=== PATIENT | male | born 1995 | race Caucasian/White ===

== ENCOUNTER 2016-06-25 14:03 | Emergency (ER) | payer SELFPAY ==
[~2016-06-25] VITALS: Ht 180.3 cm; Wt 67.7 kg
[2016-06-25 15:29] LABS: BLOOD UREA NITROGEN 12 mg/dL (7-18)
[2016-06-25 15:30] LABS: ASPARTATE AMINO TRANSFERASE 22 U/L (15-37)
[2016-06-25 16:20] LABS: PATH.CAST-FLAG NOT PRESENT; SPERM-FLAG NOT PRESENT; SRC-FLAG NOT PRESENT; XTAL-FLAG NOT PRESENT; YLC-FLAG NOT PRESENT
[2016-06-25] MEDS ORDERED: KETOROLAC 30 MG/1 ML ONE (16:49)
[2016-06-25] MEDS ORDERED: KETOROLAC 30 MG/1 ML IM ONE (17:00)
[2016-06-25] MEDS ORDERED: HYDROcodone/APAP 5/325 TABLET ONE (19:21)
[2016-06-25 19:28] VITALS: BP 123/74
[2016-06-25] MEDS ORDERED: HYDROcodone/APAP 5/325 TABLET PO ONE (19:30)
[2016-06-25] MEDS ORDERED: SODIUM CHLORIDE FLUSH 10ML SYR IVF ONE (19:30)
[2016-06-25] MEDS ORDERED: OMNIPAQUE 350 MG/ML, 100ML BOTTLE ONE (19:30)
== END 2016-06-25 21:26 | disposition home or self-care (01) ==
LOC: ED 15:35
DX: N13.30 Unspecified hydronephrosis (principal)
CPT/HCPCS: 36415; 74174; 74176; 80053; 81001; 83690; 85025; 96372; 99285; J1885; Q9967

== ENCOUNTER 2016-09-05 17:12 | Emergency (ER) | payer SELFPAY ==
[~2016-09-05] VITALS: Ht 180.3 cm; Wt 67.0 kg
[2016-09-05 17:13] VITALS: BP 138/98
== END 2016-09-05 18:11 | disposition home or self-care (01) ==
LOC: ED 17:59
DX: J20.8 Acute bronchitis due to other specified organisms (principal); B96.89 Other specified bacterial agents as the cause of diseases classified elsewhere; J02.0 Streptococcal pharyngitis; F17.200 Nicotine dependence, unspecified, uncomplicated; F12.10 Cannabis abuse, uncomplicated
CPT/HCPCS: 99283

== ENCOUNTER 2018-02-15 04:00 | Inpatient (IN) | payer BC, OTHER ==
[~2018-02-15] VITALS: Ht 180.3 cm; Wt 53.7 kg
[2018-02-15] MEDS ORDERED: ONDANSETRON 2MG/ML, 2ML ONE (04:28)
[2018-02-15] MEDS ORDERED: MORPHINE SULFATE 4 MG/ML, 1ML ONE ×2 (04:29→07:00)
[2018-02-15] MEDS ORDERED: MORPHINE SULFATE 4 MG/ML, 1ML IVPush PRN ×2 (04:30→07:30)
[2018-02-15] MEDS ORDERED: ONDANSETRON 2MG/ML, 2ML IVPush ONE (04:30)
[2018-02-15 04:33] LABS: MEAN CORPUSCULAR HEMOGLOBIN 29.8 pg (27.5-34.5); MEAN CORPUSCULAR HGB CONC 34.1 g/dL (33.2-36.2); MEAN CORPUSCULAR VOLUME 87.3 fL (81-97); PLATELET COUNT 432 x10^3/uL (130-400); RED BLOOD COUNT 5.69 x10^6/uL (4.38-5.82); RED CELL DISTRIBUTION WIDTH 12.7 % (9.4-14.8)
[2018-02-15 04:47] LABS: ANION GAP 15 mmol/L (5-15); CALCIUM 9.8 mg/dL (8.5-10.1); CHLORIDE 106 mmol/L (98-107); CREATININE 1.63 mg/dL (0.7-1.3)
[2018-02-15 04:48] LABS: ALANINE AMINOTRANSFERASE 19 U/L (12-78); ALBUMIN 4.6 g/dL (3.4-5.0)
[2018-02-15 04:50] LABS: ALKALINE PHOSPHATASE 75 U/L (45-117); TOTAL PROTEIN 8.5 g/dL (6.4-8.2)
[2018-02-15 04:56] LABS: BASOPHILS # (AUTO) 0.23 x10^3/uL (0-0.1); BASOPHILS % (AUTO) 1 % (0-1); EOSINOPHILS # (AUTO) 0.46 x10^3/uL (0-0.4); EOSINOPHILS % (AUTO) 3 % (1-7); LYMPHOCYTES # (AUTO) 4.42 x10^3/uL (1-3.4); LYMPHOCYTES % (AUTO) 24 % (22-44); MD SCAN; MONOCYTES # (AUTO) 0.76 x10^3/uL (0.2-0.8); MONOCYTES % (AUTO) 4 % (2-9); NEUTROPHILS # (AUTO) 12.54 x10^3/uL (1.8-6.8); NEUTROPHILS % (AUTO) 68 % (42-75)
[2018-02-15] MEDS ORDERED: SODIUM CHLORIDE 0.9% 1,000ML IVBOLUS ONE (05:00)
[2018-02-15] MEDS ORDERED: OMNIPAQUE 350 MG/ML, 100ML BOTTLE ONE (05:07)
[2018-02-15] MEDS ORDERED: ONDANSETRON 2MG/ML, 2ML IVPush PRN ×2 (07:30→09:00)
[2018-02-15 07:57] LABS: MICROSCOPIC AUTO
[2018-02-15 08:00] LABS: CULTURE INDICATED? NO
[2018-02-15 08:05] VITALS: BP 161/90
[2018-02-15] MEDS ORDERED: LIDODERM 5% PATCH TD PRN (09:00)
[2018-02-15] MEDS ORDERED: LABETALOL 5MG/ML, 20ML IVPush PRN (09:00)
[2018-02-15] MEDS ORDERED: BISACODYL 10 MG SUPP PR PRN (09:00)
[2018-02-15] MEDS ORDERED: PIPERACILLIN/TAZO/PMX 2.25GM 50 ML IVPB SCH (10:00)
[2018-02-15] MEDS: HEPARIN 5,000 UNITS/ML, 1ML SQ SCH ×2 (10:00→18:00)
[2018-02-15] MEDS ORDERED: morphine SULFATE 10 MG/ML, 1ML IVPush PRN (10:00)
[2018-02-15 10:08] LABS: FREE T4 (FREE THYROXINE) 1.63 ng/dL (0.76-1.46); THYROID STIMULATING HORMONE 0.662 mIU/L (0.358-3.740)
[2018-02-15] MEDS ORDERED: MIDAZOLAM 1 MG/ML, 5ML ONE ×2 (11:00)
[2018-02-15] MEDS ORDERED: FENTANYL PF 100 MCG/2ML ONE (11:00)
[2018-02-15] MEDS ORDERED: NALOXONE 1 MG/ML, 2ML ONE (11:00)
[2018-02-15] MEDS ORDERED: FLUMAZENIL 0.1 MG/1 ML, 5ML ONE (11:00)
[2018-02-15] MEDS ORDERED: LIDOCAINE-MPF 1%, 5ML ONE (11:03)
[2018-02-15 14:00] VITALS: BP 146/70
[2018-02-15] MEDS: SODIUM CHLORIDE 0.9% 1,000 ML IV SCH (15:43)
[2018-02-15] MEDS: PIPERACILLIN/TAZO/PMX 3.375GM 50 ML IV SCH ×2 (16:00→22:23)
[2018-02-15] MEDS ORDERED: ACETAMINOPHEN 325 MG TABLET PO PRN (18:00)
[2018-02-15 19:48] VITALS: BP 128/86
[2018-02-16] MEDS: HEPARIN 5,000 UNITS/ML, 1ML SQ SCH ×2 (02:00→10:00)
[2018-02-16 02:48] VITALS: BP 133/75
[2018-02-16] MEDS: SODIUM CHLORIDE 0.9% 1,000 ML IV SCH ×2 (04:01→12:21)
[2018-02-16] MEDS: PIPERACILLIN/TAZO/PMX 3.375GM 50 ML IV SCH ×2 (04:01→10:52)
[2018-02-16 05:53] LABS: BASOPHILS # (AUTO) 0.05 x10^3/uL (0-0.1); BASOPHILS % (AUTO) 0 % (0-1); CHLORIDE 107 mmol/L (98-107); EOSINOPHILS # (AUTO) 0.39 x10^3/uL (0-0.4); EOSINOPHILS % (AUTO) 3 % (1-7); LYMPHOCYTES % (AUTO) 20 % (22-44); MD NO; MEAN CORPUSCULAR HEMOGLOBIN 29.8 pg (27.5-34.5); MEAN CORPUSCULAR HGB CONC 33.9 g/dL (33.2-36.2); MEAN CORPUSCULAR VOLUME 88.1 fL (81-97); MEAN PLATELET VOLUME 7.6 fL (7.4-10.4); MONOCYTES # (AUTO) 0.75 x10^3/uL (0.2-0.8); MONOCYTES % (AUTO) 6 % (2-9); NEUTROPHILS # (AUTO) 9.41 x10^3/uL (1.8-6.8); NEUTROPHILS % (AUTO) 71 % (42-75); PLATELET COUNT 290 x10^3/uL (130-400); RED BLOOD COUNT 4.86 x10^6/uL (4.38-5.82); RED CELL DISTRIBUTION WIDTH 12.9 % (9.4-14.8)
[2018-02-16 06:11] LABS: ANION GAP 9 mmol/L (5-15); CALCIUM 8.8 mg/dL (8.5-10.1); CREATININE 1.42 mg/dL (0.7-1.3)
[2018-02-16] MEDS ORDERED: PANTOPRAZOLE 40 MG IV IVPush SCH (07:30)
[2018-02-16 07:37] VITALS: BP 130/78
[2018-02-16 12:37] VITALS: BP 128/79
[2018-02-16 14:55] LABS: BASOPHILS # (AUTO) 0.07 x10^3/uL (0-0.1); BASOPHILS % (AUTO) 1 % (0-1); EOSINOPHILS # (AUTO) 0.36 x10^3/uL (0-0.4); EOSINOPHILS % (AUTO) 3 % (1-7); LYMPHOCYTES # (AUTO) 2.65 x10^3/uL (1-3.4); LYMPHOCYTES % (AUTO) 22 % (22-44); MD NO; MEAN CORPUSCULAR HEMOGLOBIN 29.7 pg (27.5-34.5); MEAN CORPUSCULAR HGB CONC 33.8 g/dL (33.2-36.2); MEAN CORPUSCULAR VOLUME 87.9 fL (81-97); MEAN PLATELET VOLUME 7.5 fL (7.4-10.4); MONOCYTES # (AUTO) 0.83 x10^3/uL (0.2-0.8); MONOCYTES % (AUTO) 7 % (2-9); NEUTROPHILS # (AUTO) 8.45 x10^3/uL (1.8-6.8); NEUTROPHILS % (AUTO) 68 % (42-75); PLATELET COUNT 288 x10^3/uL (130-400); RED BLOOD COUNT 4.67 x10^6/uL (4.38-5.82); RED CELL DISTRIBUTION WIDTH 12.9 % (9.4-14.8)
[2018-02-16 15:06] LABS: ANION GAP 7 mmol/L (5-15); CALCIUM 8.6 mg/dL (8.5-10.1); CHLORIDE 108 mmol/L (98-107); CREATININE 1.28 mg/dL (0.7-1.3)
== END 2018-02-16 18:14 | disposition left against medical advice (07) | DRG 693 ==
LOC: ED 04:22 → EDIP 07:02 → 3NE 07:43
PROVIDERS: ADMIT Family Medicine; ATTEND Family Medicine
PROC: 0T9330Z Drainage of Right Kidney Pelvis with Drainage Device, Percutaneous Approach (ICD-10-PCS; principal; 2018-02-15)
DX: N13.1 Hydronephrosis with ureteral stricture, not elsewhere classified (principal); K85.00 Idiopathic acute pancreatitis without necrosis or infection; E87.2 Acidosis; Z53.21 Procedure and treatment not carried out due to patient leaving prior to being seen by health care provider; E86.0 Dehydration; F12.90 Cannabis use, unspecified, uncomplicated; K76.0 Fatty (change of) liver, not elsewhere classified; N17.9 Acute kidney failure, unspecified; R73.9 Hyperglycemia, unspecified; Z23 Encounter for immunization
CPT/HCPCS: 36415; 50432; 74177; 76937; 80048; 80053; 81001; 82962; 83690; 84439; 84443; 85025; 87040; 87070; 87075; 87205; 90656; 93005; 96361; 96374; 96375; 96376; 99156; 99157; 99291; C1894; G0378; J2250; J2405; J2543; J3010; Q9967; C1729; C1769; C9113; J2310; J7030

== ENCOUNTER 2018-03-07 16:00 | Emergency (ER) | payer BC, OTHER ==
[~2018-03-07] VITALS: Ht 180.3 cm; Wt 64.7 kg
[2018-03-07 16:01] VITALS: BP 147/97
--- NOTE | 2018-03-07 16:52 | NUR ---
NEPHROSTOMY DRESSING CHANGED WITH ASSIT FROM SURJIT DICK. PT TOLERATED WELL. TUBE SECURED AND DRESSED WITH APPROPRIATE DRESSING AND COLLECTION BAG CHANGED AT THIS TIME.
== END 2018-03-07 17:01 | disposition home or self-care (01) ==
LOC: ED 16:05
DX: Z48.00 Encounter for change or removal of nonsurgical wound dressing (principal); Z13.9 Encounter for screening, unspecified; F17.200 Nicotine dependence, unspecified, uncomplicated
CPT/HCPCS: 99283

== ENCOUNTER 2018-03-15 12:16 | Emergency (ER) | payer BC ==
[~2018-03-15] VITALS: Ht 180.3 cm; Wt 68.7 kg
[2018-03-15 13:04] LABS: BASOPHILS # (AUTO) 0.04 x10^3/uL (0-0.1); BASOPHILS % (AUTO) 0 % (0-1); EOSINOPHILS # (AUTO) 0.26 x10^3/uL (0-0.4); EOSINOPHILS % (AUTO) 2 % (1-7); LYMPHOCYTES # (AUTO) 2.24 x10^3/uL (1-3.4); LYMPHOCYTES % (AUTO) 19 % (22-44); MD NO; MEAN CORPUSCULAR HEMOGLOBIN 29.1 pg (27.5-34.5); MEAN CORPUSCULAR HGB CONC 33.5 g/dL (33.2-36.2); MEAN CORPUSCULAR VOLUME 86.9 fL (81-97); MEAN PLATELET VOLUME 7.8 fL (7.4-10.4); MONOCYTES # (AUTO) 0.56 x10^3/uL (0.2-0.8); MONOCYTES % (AUTO) 5 % (2-9); NEUTROPHILS # (AUTO) 8.43 x10^3/uL (1.8-6.8); NEUTROPHILS % (AUTO) 73 % (42-75); PLATELET COUNT 268 x10^3/uL (130-400); RED BLOOD COUNT 5.27 x10^6/uL (4.38-5.82); RED CELL DISTRIBUTION WIDTH 12.8 % (9.4-14.8)
--- NOTE | 2018-03-15 13:12 | NUR ---
URINE COLLECTED FROM NEPHROSTOMY/SENT TO LAB. PT ATTEMPTING TO PROVIDE OTHER UA WITH URINATION.
--- NOTE | 2018-03-15 13:20 | NUR ---
BOTH UAs COLLECTED/SENT TO LAB. AWAITING LABS, XR READ.
[2018-03-15 13:35] LABS: ALANINE AMINOTRANSFERASE 16 U/L (12-78); ALBUMIN 4.1 g/dL (3.4-5.0); ANION GAP 7 mmol/L (5-15); CALCIUM 9.2 mg/dL (8.5-10.1); CHLORIDE 107 mmol/L (98-107); CREATININE 1.04 mg/dL (0.7-1.3)
[2018-03-15 13:37] LABS: ALKALINE PHOSPHATASE 64 U/L (45-117); BILIRUBIN,TOTAL 0.9 mg/dL (0.2-1.0); TOTAL PROTEIN 7.2 g/dL (6.4-8.2)
--- NOTE | 2018-03-15 13:40 | NUR ---
TASK RN: NEPHROSTOMY TUBE DRESSING CHANGED. BIOPATCH PLACED ON TUBE INSERTION SITE. DONE IN A STERILE FASHION.
[2018-03-15 14:05] LABS: MICROSCOPIC INDICATED
[2018-03-15 14:06] LABS: CULTURE INDICATED? YES
[2018-03-15 14:08] LABS: MICROSCOPIC NOT IND
[2018-03-15 14:12] LABS: CULTURE INDICATED? NO
--- NOTE | 2018-03-15 14:25 | NUR ---
ALL RESULTS BACK, PT FOR RECHECK.
[2018-03-15 14:56] VITALS: BP 112/58
== END 2018-03-15 14:58 | disposition home or self-care (01) ==
LOC: ED 13:30
DX: R31.9 Hematuria, unspecified (principal); R11.0 Nausea; Z43.6 Encounter for attention to other artificial openings of urinary tract
CPT/HCPCS: 36415; 74018; 80053; 81001; 81003; 85025; 87077; 87086; 99284

== ENCOUNTER 2018-03-23 10:52 | Day surgery (SDC) | payer BC ==
[~2018-03-23] VITALS: Ht 180.3 cm; Wt 67.4 kg
[2018-03-23 11:31] VITALS: BP 148/91
[2018-03-23] MEDS ORDERED: SODIUM CHLORIDE 0.9% 1,000 ML IV SCH (11:33)
[2018-03-23] MEDS ORDERED: LIDOCAINE-MPF 1%, 5ML ONE (12:02)
[2018-03-23] MEDS ORDERED: MIDAZOLAM 1 MG/ML, 5ML ONE ×2 (12:31)
[2018-03-23] MEDS ORDERED: NALOXONE 1 MG/ML, 2ML ONE (12:31)
[2018-03-23] MEDS ORDERED: FENTANYL PF 100 MCG/2ML ONE (12:31)
[2018-03-23] MEDS ORDERED: FLUMAZENIL 0.1 MG/1 ML, 5ML ONE (12:31)
[2018-03-23] MEDS ORDERED: VISIPAQUE 270 MG/ML, 50ML BOTTLE ONE (13:22)
== END 2018-03-23 14:28 | disposition home or self-care (01) ==
LOC: OUT 10:52 → EDSTATUS 13:00 → OUT 14:25
PROVIDERS: ATTEND Urology
DX: Q62.11 Congenital occlusion of ureteropelvic junction (principal); I10 Essential (primary) hypertension; F19.90 Other psychoactive substance use, unspecified, uncomplicated; D72.829 Elevated white blood cell count, unspecified
CPT/HCPCS: 50435; 99156; C1729; C1769; J2250; J3010; J7030; Q9966; J2310

== ENCOUNTER → 2018-04-06 | Outpatient (CLI) | payer BC ==
[~2018-04-06] MED LIST: FUROSEMIDE 20 MG/2 ML ONE
== END | disposition home or self-care (01) ==
LOC: PETCFH 08:18
PROVIDERS: ATTEND Urology
DX: R94.4 Abnormal results of kidney function studies (principal); Q62.11 Congenital occlusion of ureteropelvic junction
CPT/HCPCS: 78708; A9562; J1940

== ENCOUNTER 2018-04-24 13:09 | Emergency (ER) | payer BC ==
[~2018-04-24] VITALS: Ht 180.3 cm; Wt 68.4 kg
[2018-04-24 14:26] LABS: BASOPHILS # (AUTO) 0.04 x10^3/uL (0-0.1); BASOPHILS % (AUTO) 0 % (0-1); EOSINOPHILS % (AUTO) 1 % (1-7); LYMPHOCYTES # (AUTO) 1.67 x10^3/uL (1-3.4); LYMPHOCYTES % (AUTO) 17 % (22-44); MD NO; MEAN CORPUSCULAR HEMOGLOBIN 29.1 pg (27.5-34.5); MEAN CORPUSCULAR HGB CONC 33.2 g/dL (33.2-36.2); MEAN CORPUSCULAR VOLUME 87.8 fL (81-97); MEAN PLATELET VOLUME 8.4 fL (7.4-10.4); MONOCYTES % (AUTO) 6 % (2-9); NEUTROPHILS # (AUTO) 7.51 x10^3/uL (1.8-6.8); NEUTROPHILS % (AUTO) 76 % (42-75); PLATELET COUNT 267 x10^3/uL (130-400); RED CELL DISTRIBUTION WIDTH 13.8 % (9.4-14.8)
[2018-04-24 14:30] LABS: ALBUMIN 4.1 g/dL (3.4-5.0); ANION GAP 5 mmol/L (5-15); CALCIUM 8.8 mg/dL (8.5-10.1); CHLORIDE 109 mmol/L (98-107); CREATININE 1.14 mg/dL (0.7-1.3)
--- NOTE | 2018-04-24 14:58 | NUR ---
Per CAMELIA Bustillos to change patient's malodorous, soiled nephrostomy dressing. Dressing was loose with opening to nephrostomy site visible and large amount of moist and dry yellow thick drainage saturating dressing and stuck to skin around nephrostomy site opening. Nephrostomy tubing at entrance to site with sticky black substance, cleansed with chlorhexidine and sterile gauze. Skin around nephrostomy tube entrance raised and erythematous approximately one inch surrounding opening. Dried drainage removed from skin and skin cleansed with chlorhexidine, drain dressing placed around tube, covered with tegaderm and secured with medipore tape. Patient tolerated well stating "it felt good to have that cleaned".
[2018-04-24 15:37] LABS: CULTURE INDICATED? YES; MICROSCOPIC INDICATED
[2018-04-24 16:00] VITALS: BP 144/86
--- NOTE | 2018-04-24 16:21 | NUR ---
REPORT FROM KIMBERLY LUJAN
--- NOTE | 2018-04-24 16:39 | NUR ---
DC EDUCATION PROVIDED, PT DEMONSTRATES UNDERSTANDING. PT AMBULATED STEADILY TO DC WITH RN.
== END 2018-04-24 16:41 | disposition home or self-care (01) ==
LOC: ED 15:37
DX: T83.512A Infection and inflammatory reaction due to nephrostomy catheter, initial encounter (principal); F17.200 Nicotine dependence, unspecified, uncomplicated
CPT/HCPCS: 36415; 80048; 81001; 82040; 85025; 87086; 99283

== ENCOUNTER → 2018-05-26 | Outpatient (CLI) | payer BC ==
[~2018-05-26] MED LIST changes: -FUROSEMIDE 20 MG/2 ML ONE; +None per pt
[2018-05-26 10:52] LABS: MICROSCOPIC INDICATED
== END | disposition home or self-care (01) ==
LOC: STAR 09:29
PROVIDERS: ATTEND Urology
DX: Z01.818 Encounter for other preprocedural examination (principal); Q62.11 Congenital occlusion of ureteropelvic junction; Z93.6 Other artificial openings of urinary tract status
CPT/HCPCS: 81001; 87086

== ENCOUNTER 2018-06-02 10:11 | Observation (INO) | payer BC ==
[~2018-06-02] VITALS: Ht 182.9 cm; Wt 68.4 kg
[2018-06-02 10:34] VITALS: BP 128/75
[2018-06-02] MEDS ORDERED: MIDAZOLAM 1 MG/ML, 2ML ONE (11:30)
[2018-06-02] MEDS ORDERED: FENTANYL PF 250 MCG/5ML ONE (11:30)
[2018-06-02] MEDS ORDERED: PROPOFOL 10 MG/ML, 20ML ONE ×2 (12:20→17:05)
[2018-06-02] MEDS ORDERED: CEFAZOLIN 1,000 MG ONE ×4 (12:20→17:06)
[2018-06-02] MEDS ORDERED: ONDANSETRON 2MG/ML, 2ML ONE ×3 (12:55→18:18)
[2018-06-02] MEDS ORDERED: METHYLENE BLUE 50 MG/10 ML AMP ONE (13:00)
[2018-06-02] MEDS ORDERED: BUPIVACAINE/PF 0.25% ONE (13:24)
[2018-06-02] MEDS ORDERED: THROMBIN 5,000 UNIT VIAL TP ONE (13:24)
[2018-06-02] MEDS ORDERED: EPINEPHRINE 1 MG/ML, 1ML ONE (13:24)
[2018-06-02] MEDS ORDERED: INDIGO CARMINE 0.8%, 5ML ONE (13:24)
[2018-06-02] MEDS ORDERED: FAMOTIDINE 20 MG TABLET PO ONE (13:30)
[2018-06-02] MEDS ORDERED: ACETAMINOPHEN 500 MG TABLET PO ONE (13:30)
[2018-06-02] MEDS ORDERED: OxyconTIN ER 20 MG TAB.ER PO ONE (13:30)
[2018-06-02] MEDS ORDERED: GABAPENTIN 300 MG CAPSULE PO ONE (13:30)
[2018-06-02] MEDS ORDERED: ROCURONIUM 10MG/ML,5ML ONE ×2 (17:05)
[2018-06-02] MEDS ORDERED: DEXAMETHASONE 4 MG/ML, 5ML ONE (17:05)
[2018-06-02] MEDS ORDERED: NEOSTIGMINE 1 MG/ML, 10ML ONE (17:50)
[2018-06-02] MEDS ORDERED: GLYCOPYRROLATE 0.4 MG/2 ML, 2ML ONE (17:50)
[2018-06-02] MEDS ORDERED: PROMETHAZINE 25 MG/ML, 1ML IV PRN (18:00)
[2018-06-02] MEDS ORDERED: HYDROmorphone 2 MG/ML, 1ML IVPush PRN (18:00)
[2018-06-02] MEDS ORDERED: OXYcodone 5 MG/5 ML ORAL.SOL UDC PO PRN (18:00)
[2018-06-02] MEDS ORDERED: LABETALOL 5 MG/ML SYRINGE IV PRN (18:00)
[2018-06-02] MEDS ORDERED: FENTANYL PF 100 MCG/2ML IV PRN (18:00)
[2018-06-02] MEDS ORDERED: hydrALAzine 20 MG/ML, 1ML IV PRN (18:00)
[2018-06-02] MEDS ORDERED: MEPERIDINE/PF 25MG/0.5ML IVPush PRN (18:00)
[2018-06-02] MEDS ORDERED: ONDANSETRON 2MG/ML, 2ML IV PRN ×2 (18:00→20:30)
[2018-06-02] MEDS ORDERED: PROMETHAZINE 25 MG/ML, 1ML ONE (18:32)
[2018-06-02] MEDS ORDERED: HYDROmorphone 2 MG/ML, 1ML ONE (19:09)
[2018-06-02 19:40] VITALS: BP 143/79
[2018-06-02] MEDS: ACETAMINOPHEN 500 MG TABLET PO SCH (20:13)
[2018-06-02] MEDS: DOCUSATE 100 MG CAPSULE PO SCH (20:13)
[2018-06-02] MEDS ORDERED: MORPHINE SULFATE 4 MG/ML, 1ML IV PRN (20:30)
[2018-06-02] MEDS: CEFAZOLIN PMX 1GM/50ML 50 ML IV SCH (21:47)
[2018-06-02] MEDS: OXYcodone/APAP 5/325MG TABLET PO PRN (22:59)
[2018-06-03 00:04] VITALS: BP 136/68
[2018-06-03] MEDS: ACETAMINOPHEN 500 MG TABLET PO SCH ×2 (02:23→07:54)
[2018-06-03 04:00] VITALS: BP_SYST 128
[2018-06-03] MEDS: OXYcodone/APAP 5/325MG TABLET PO PRN ×2 (04:16→10:56)
[2018-06-03] MEDS: CEFAZOLIN PMX 1GM/50ML 50 ML IV SCH (05:44)
[2018-06-03 07:44] VITALS: BP 140/81
[2018-06-03] MEDS: DOCUSATE 100 MG CAPSULE PO SCH (09:00)
[2018-06-03] MEDS ORDERED: NITR100C56 PO (12:06)
[2018-06-03 13:00] VITALS: BP 135/90
== END 2018-06-03 13:26 | disposition home or self-care (01) ==
LOC: OUT 10:11 → 4NOR 19:47 → OUT 20:41 → DCLOUNGE 06-03 13:16
PROVIDERS: ADMIT Urology; ATTEND Urology
DX: N13.5 Crossing vessel and stricture of ureter without hydronephrosis (principal)
CPT/HCPCS: 50544; 74420; 88305; 96365; 96366; C1729; C1758; C1760; C1769; C2617; G0378; J0171; J0690; J1100; J1170; J2250; J2405; J2550; J2704; J2710; J3010; J3490; Q9968